=== PATIENT | female | born 1985 | race Caucasian/White ===

== ENCOUNTER 2019-09-04 12:45 | Outpatient (CLI) | payer BC, SELFPAY ==
--- NOTE | 2019-09-04 13:00 | CT_ITS ---
WS: [id number] CT HEAD NONCONTRAST HISTORY: intense headache TECHNIQUE: Contiguous axial imaging performed through the brain in 2.5 mm imaging. Bone and soft tiss ue windows. All CT scans at [facility] use at least one of these dose optimization techniq ues: automated exposure control; mA and/or kV adjustment per patient size (includes targeted exams wh ere dose is matched to clinical indication); or iterative reconstruction. DLP: 859.77 mGycm COMPARISON: None available. No acute intracranial hemorrhage, midline shift or mass effect. No atrophy or prior infarcts or herniation. Ventricles: Normal size with no hydrocephalus. Paranasal sinuses: As visualized are clear. Mastoid air cells: Well pneumatized. Calvarium and scalp: Skull is intact with no soft tissue edema or swelling. CT/CT head wo con* [id number] IMPRESSION: Negative head CT.
== END 2019-09-04 12:46 | disposition home or self-care (01) ==
LOC: RADWPI 12:51
PROVIDERS: PCP Nurse Practitioner Family; Visit Provider Nurse Practitioner Family
DX: R51 Headache (principal)
CPT/HCPCS: 70450

== ENCOUNTER 2019-09-23 07:03 | Outpatient (CLI) | payer BC, SELFPAY ==
--- NOTE | 2019-09-23 07:15 | USCV_ITS ---
Kalie Gomez Age: 33 Gender: F : 1985 Exam Date: 09/23/2019 07:23 Ordering Phys: HUEY Braden APRN Technologist: JHONATHAN OCONNOR Exam Location: [facility] [place] Indication: PAIN AND SWELLING RIGHT LOWER LEG PROCEDURES: Venous duplex imaging was performed in only the right lower extremity. The following venous structures were evaluated: common femoral vein, profunda vein, proximal portion of the greater saphenous vein, superficial femoral vein, and the popliteal vein. In addition, the posterior tibial and peroneal trunk were evaluated. Serial compression, augmentation maneuvers, and spectral Doppler flow evaluation were performed. FINDINGS: Normal 2-D Doppler and augmentation and compressibility throughout the lower extremity venous structures. Additional imaging through the proximal calf veins also reveals no thrombus. Limited evaluation of the greater saphenous vein is patent with no thrombus. Lymph node appearing areas were visualized at the level of the profunda. CONCLUSIONS No DVT right lower extremity. Dr. Abi Amanda DO (Electronically Signed) Final Date: 23 September 2019 09:26 S
== END 2019-09-23 07:04 | disposition home or self-care (01) ==
PROVIDERS: PCP Nurse Practitioner Family; Visit Provider Nurse Practitioner Family
DX: M79.661 Pain in right lower leg (principal); M79.89 Other specified soft tissue disorders
CPT/HCPCS: 93971

== ENCOUNTER → 2019-11-20 11:47 | Outpatient (BNVA) | payer BC, SELFPAY | PROVIDERS: PCP Nurse Practitioner Family; Referring Provider Nurse Practitioner Family; Visit Provider Specialist | DX: G43.711 Chronic migraine without aura, intractable, with status migrainosus (principal); Z86.718 Personal history of other venous thrombosis and embolism | CPT/HCPCS: 99204 ==

== ENCOUNTER → 2019-12-02 11:35 | Outpatient (BNVA) | payer BC, SELFPAY | PROVIDERS: PCP Nurse Practitioner Family; Visit Provider Nurse Practitioner Family | DX: R53.83 Other fatigue (principal); E78.2 Mixed hyperlipidemia; Z79.899 Other long term (current) drug therapy; D64.9 Anemia, unspecified | CPT/HCPCS: 80053; 80061; 81003; 82607; 82746; 83036; 83540; 83735; 84439; 84443; 84481; 85025 ==

== ENCOUNTER → 2019-12-04 09:32 | Outpatient (BNVA) | payer BC, SELFPAY | PROVIDERS: PCP Nurse Practitioner Family; Visit Provider Nurse Practitioner Family | DX: R53.83 Other fatigue (principal); E78.2 Mixed hyperlipidemia; D64.9 Anemia, unspecified | CPT/HCPCS: 80061; 82607; 82746; 83540; 83735; 84439; 84443; 84481 ==

== ENCOUNTER → 2020-01-14 11:40 | Outpatient (BNVA) | payer BC, SELFPAY | PROVIDERS: PCP Nurse Practitioner Family; Visit Provider Nurse Practitioner Family | DX: R00.0 Tachycardia, unspecified (principal); D64.9 Anemia, unspecified; Z86.73 Personal history of transient ischemic attack (TIA), and cerebral infarction without residual deficits; E53.8 Deficiency of other specified B group vitamins | CPT/HCPCS: 83921 ==

== ENCOUNTER → 2020-05-19 12:06 | Outpatient (BNVA) | payer OTHER, SELFPAY | PROVIDERS: PCP Nurse Practitioner Family; Visit Provider Specialist | DX: G43.711 Chronic migraine without aura, intractable, with status migrainosus (principal); Z86.718 Personal history of other venous thrombosis and embolism | CPT/HCPCS: 99213; 99214 ==

== ENCOUNTER → 2020-08-19 09:45 | Outpatient (BNVA) | payer OTHER, SELFPAY | PROVIDERS: PCP Nurse Practitioner Family; Visit Provider Specialist | DX: G43.711 Chronic migraine without aura, intractable, with status migrainosus (principal); Z86.718 Personal history of other venous thrombosis and embolism | CPT/HCPCS: 99213; 99214 ==

== ENCOUNTER → 2020-09-27 14:37 | Outpatient (BNVA) | payer OTHER, SELFPAY | PROVIDERS: PCP Nurse Practitioner Family; Visit Provider Internal Medicine | DX: Z01.812 Encounter for preprocedural laboratory examination (principal); R13.10 Dysphagia, unspecified; Z20.822 Contact with and (suspected) exposure to COVID-19 | CPT/HCPCS: 87635 ==

== ENCOUNTER 2020-10-01 08:43 | Day surgery (SDC) | payer OTHER, SELFPAY ==
[2020-09-29 12:01] VITALS: BMI 31.8
--- NOTE | 2020-10-01 09:23 | ANES.PREANE2 ---
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) Anesthetic Plan: ASA status: 2 Anesthesia: MAC Risk of > 500 ml blood loss (7ml/kg in children): No PFSH Anesthesia PFSH: Medical History Anemia Dysphagia Family planning, BCP maintenance Fatigue Folic acid deficiency GERD (gastroesophageal reflux disease) History of anticoagulant use History of blood clot in brain Medication management Mixed hyperlipidemia Mood swings Nausea & vomiting Sinus tachycardia Tachycardia Surgical History No pertinent past surgical history Family History Other CAD (coronary artery disease) Diabetes Hypertension Social History Smoking and tobacco status: never smoked Second hand smoke exposure: No Counseling given: No Desire information about substance/drug rehabilitation?: No Counseling given: No History of recent travel: No Data Anesthesia Cardiac Studies: No Data to Display
--- NOTE | 2020-10-01 09:32 | W.PM.OPSFHP ---
Same Day Surgery H&P Indication for Procedure/HPI DATE OF PROCEDURE: October 01, 2020 CHIEF COMPLAINT/INDICATIONFOR SURGICAL PROCEDURE: Abdominal pain and katelyn colored stools PREOP DIAGNOSIS: Abdominal pain and katelyn colored stools PLANNED PROCEDRUE: Operation Date: 10/01/20 09:30 Proposed Procedures p EGD 76172 R13.10(Not Applicable) - Sawyer Lopez MD Medications/Allergies* Home Medications Medication Instructions Recorded Confirmed Type cetirizine 10 mg capsule 10 mg PO DAILY 11/20/19 09/29/20 History cholecalciferol (vitamin D3) 1,250 PO DAILY cap 11/20/19 09/21/20 History mcg (50,000 unit) capsule Allergies/Adverse Reactions Allergy/AdvReac Type Severity Reaction Status Date / Time latex Allergy ALGY-Hives Verified 09/29/20 11:58 Pertinent History/Comorbid Conditions* Medical History (Updated 09/16/20 @ 15:10 by Sawyer Lopez MD) Anemia Dysphagia Family planning, BCP maintenance Fatigue Folic acid deficiency GERD (gastroesophageal reflux disease) History of anticoagulant use History of blood clot in brain Medication management Mixed hyperlipidemia Mood swings Nausea & vomiting Sinus tachycardia Tachycardia Surgical History (Updated 12/02/19 @ 10:26 by ELISA Nash) No pertinent past surgical history Family History (Updated 11/20/19 @ 12:18 by Adilia Messina LPN) Diabetes CAD (coronary artery disease) Hypertension Social History Smoking and tobacco status: never smoked Second hand smoke exposure: No Counseling given: No Desire information about substance/drug rehabilitation?: No Counseling given: No History of recent travel: No Pertinent Exam Findings alert, oriented x 3, clear to auscultation bilaterally, regular rate & rhythm, operative site marked and procedure specific exam findings Recommendations Surgery/Procedure today Coding Level of Care Code Acute Director Non Profit for Carlos Enrique Bruno
[2020-10-01 09:38] VITALS: BP 121/77; PULSE 80; RESP 18; TEMP 37; O2SAT 100
[2020-10-01] MEDS: sodium chloride 0.9% 1,000 ML 30 ML IV (09:42)
[2020-10-01 09:48] LABS: OR HCG Qualitative Urine Negative (Negative)
[2020-10-01 10:28] VITALS: BP 111/73; PULSE 97; RESP 18; O2SAT 98
--- NOTE | 2020-10-01 10:33 | ANE.PACU2 ---
Inpatient post-anesthesia follow up: Airway intact: Yes Vital signs: Temperature 98.6 F Pulse Rate 80 Respiratory Rate 18 Blood Pressure 121/77 Pulse Oximetry 100 Oxygen Delivery Me thod Room Air Oxygen Flow Rate Fraction of Inspir ed Oxygen Hydration adequate: Yes Nausea and vomiting: No Pain level: 1 Mental status: Baseline
[2020-10-01 10:52] VITALS: BP 103/67; PULSE 85; RESP 18; O2SAT 99
== END 2020-10-01 10:55 | disposition home or self-care (01) ==
PROVIDERS: Anesthesiology; PCP Nurse Practitioner Family; Visit Provider Internal Medicine
PROC: 0DJ08ZZ Inspection of Upper Intestinal Tract, Via Natural or Artificial Opening Endoscopic (ICD-10-PCS; CPT 43235; principal; 2020-10-01 09:30)
DX: R10.13 Epigastric pain (principal); R19.5 Other fecal abnormalities; E78.2 Mixed hyperlipidemia; Z82.49 Family history of ischemic heart disease and other diseases of the circulatory system; Z83.3 Family history of diabetes mellitus; Z86.73 Personal history of transient ischemic attack (TIA), and cerebral infarction without residual deficits
CPT/HCPCS: 43235; 81025; 84703; 96360; J2704; J7030

== ENCOUNTER 2020-10-15 09:52 | Outpatient (CLI) | payer OTHER, SELFPAY ==
--- NOTE | 2020-10-15 10:15 | US_ITS ---
WS: [id number] RIGHT UPPER QUADRANT ULTRASOUND HISTORY: R10.9 - Unspecified abdominal pain COMPARISON: None available. Liver: 17.9 cm in length. Normal size liver. No bile duct dilatation or mass. Gallbladder: Normally distended gallbladder with no stones or wall thickening. CBD: 0.3 cm Pancreas: Normal size and echogenicity. Right kidney: 10.7 cm in length. Normal size and echogenicity. No hydronephrosis or mass. Aorta and IVC: Unremarkable abdominal aorta and IVC. No ascites. US/US gall bladder [id number] IMPRESSION: Normal RIGHT upper quadrant ultrasound.
== END 2020-10-15 09:53 | disposition home or self-care (01) ==
LOC: US 09:53
PROVIDERS: PCP Nurse Practitioner Family; Visit Provider Internal Medicine
DX: R10.9 Unspecified abdominal pain (principal)
CPT/HCPCS: 76705

== ENCOUNTER 2020-11-03 15:24 | Outpatient (CLI) | payer OTHER, SELFPAY ==
--- NOTE | 2020-11-03 15:45 | USCV_ITS ---
Kalie Gomez Age: 34 Gender: F : 1985 Exam Date: 11/03/2020 15:39 Ordering Phys: Reynaldo Mercado M.D ([email or web address]) Technologist: Cristel Vital Exam Location: [facility] [place] Indication: TACHYCARDIA BP: 145 / 90 HR: 68 Rhythm: Sinus Technical Quality: Adequate MEASUREMENTS (Male / Female) Normal Values 2D ECHO LV Diastolic Diameter PLAX 3.8 cm 4.2 - 5.9 / 3.9 - 5.3 cm LV Systolic Diameter PLAX 2.5 cm IVS Diastolic Thickness 1.2 cm 0.6 - 1.0 / 0.6 - 0.9 cm IVS Systolic Thickness 1.7 cm LVPW Diastolic Thickness 1.0 cm 0.6 - 1.0 / 0.6 - 0.9 cm LVPW Systolic Thickness 1.4 cm RV Chamber Size 2.8 cm LVOT Diameter 2.0 cm LV Ejection Fraction 2D Teich 63.0 % LV Ejection Fraction MOD 2C 58.5 % LV Ejection Fraction 2C AL 58.5 % LA Diameter 3.1 cm LA Width 3.4 cm LA Height 4.2 cm RA Width 2.8 cm RA Height 3.8 cm Aorta at Sinotubular Diameter 2.0 cm M-MODE MV E Point Septal Separation 0.3 cm DOPPLER AV Peak Velocity 136.0 cm/s LVOT Peak Velocity 128.0 cm/s AV Area Cont Eq vti 2.7 cm squared AV Area Cont Eq pk 3.0 cm squared MV Area PHT 5.0 cm squared Mitral E to A Ratio 0.9 MV E' Velocity 49.5 cm/s Mitral E to MV E' Ratio 5.3 Mitral E to LV E' Lateral Ratio 5.7 Mitral E to LV E' Septal Ratio 5.0 TR Peak Velocity 248.3 cm/s TR Peak Gradient 24.7 mmHg TV Peak E Velocity 50.0 cm/s Right Atrial Pressure 3.0 mmHg Pulmonary Artery Systolic Pressu 27.7 mmHg PV Peak Velocity 93.0 cm/s RV Acceleration Time 0.1 s RV Ejection Time 0.3 s RV AcT/ET 0.4 FINDINGS Left Ventricle Normal left ventricular size, systolic function and wall thickness, with no regional wall motion abnormalities. Normal left ventricular wall thickness. Normal diastolic filling pattern. Right Ventricle The right ventricle is normal in size and function. Right Atrium The right atrium is normal in size. Left Atrium The left atrium is normal in size. Mitral Valve Structurally normal mitral valve without significant stenosis or prolapse. There is trace mitral regurgitation. Aortic Valve Structurally normal aortic valve without significant sclerosis or stenosis. There is no aortic regurgitation. Tricuspid Valve Structurally normal tricuspid valve without significant stenosis. Trace tricuspid regurgitation. Insufficient TR jet to calculate RVSP Pulmonic Valve Structurally normal pulmonic valve without significant stenosis. There is no pulmonic regurgitation. Pericardium Normal pericardium without effusion. Aorta Normal ascending aorta dimension. CONCLUSIONS LV systolic function is normal with EF of 55-60% Diastolic function is normal Trace mitral regurgitation Trace tricuspid regurgitation No comparsion studies are available Reynaldo Mercado MD (Electronically Signed) Final Date: 11 November 2020 10:22 S
== END 2020-11-03 15:25 | disposition home or self-care (01) ==
LOC: RAD 15:25
PROVIDERS: PCP Nurse Practitioner Family; Visit Provider Internal Medicine
DX: R00.0 Tachycardia, unspecified (principal); I08.1 Rheumatic disorders of both mitral and tricuspid valves
CPT/HCPCS: 93306

== ENCOUNTER → 2020-11-18 09:07 | Outpatient (BNVA) | payer OTHER, SELFPAY | PROVIDERS: PCP Nurse Practitioner Family; Visit Provider Specialist | DX: G43.711 Chronic migraine without aura, intractable, with status migrainosus (principal); Z86.718 Personal history of other venous thrombosis and embolism | CPT/HCPCS: 99214 ==

== ENCOUNTER 2020-12-09 12:41 | Outpatient (CLI) | payer OTHER, SELFPAY ==
--- NOTE | 2020-12-09 13:00 | MR_ITS ---
WS: [id number] MRI BRAIN WITHOUT CONTRAST HISTORY: G43.711 - Chronic migraine without aura, intractable, migraines. COMPARISON: 09/04/[address] TECHNIQUE: Diffusion imaging, multiplanar T1, T2 and FLAIR imaging obtained. No evidence for acute infarct or hemorrhage. Chaudhry-white matter differentiation is normal. No remote or acute infarcts are volume loss. Ventricles and extra-axial spaces are normal. No inferior displacement of cerebellar tonsils. The sella turcica and pituitary gland are unremarkabl e. Small bilateral cervical chain lymph nodes. Dural venous sinuses and picayune of Levi demonstrate no abnormality on this unenhanced studies. Paranasal sinuses: Clear. Mastoid air cells: Normal. Calvarium and scalp: Intact. MR/MR head wo con* [id number] IMPRESSION: 1. Unremarkable noncontrast MRI brain.
== END 2020-12-09 12:42 | disposition home or self-care (01) ==
LOC: RADSHAW 12:43
PROVIDERS: PCP Nurse Practitioner Family; Visit Provider Specialist
DX: G43.711 Chronic migraine without aura, intractable, with status migrainosus (principal)
CPT/HCPCS: 70551

== ENCOUNTER → 2021-09-20 08:31 | Outpatient (BNVA) | payer OTHER, SELFPAY | PROVIDERS: PCP Nurse Practitioner Family; Visit Provider Nurse Practitioner | DX: E78.2 Mixed hyperlipidemia (principal); Z79.899 Other long term (current) drug therapy | CPT/HCPCS: 80053; 80061; 84443; 85025 ==

== ENCOUNTER → 2022-03-23 13:47 | Outpatient (BNVA) | payer OTHER, SELFPAY | PROVIDERS: PCP Nurse Practitioner Family; Visit Provider Nurse Practitioner | DX: R50.9 Fever, unspecified (principal); J10.1 Influenza due to other identified influenza virus with other respiratory manifestations | CPT/HCPCS: 87426 ==

== ENCOUNTER → 2022-09-12 13:23 | Outpatient (BNVA) | payer BC, SELFPAY | PROVIDERS: PCP Nurse Practitioner Family; Visit Provider Nurse Practitioner | DX: R05.9 Cough, unspecified (principal); J02.0 Streptococcal pharyngitis | CPT/HCPCS: 87880 ==

== ENCOUNTER → 2023-02-27 13:50 | Outpatient (BNVA) | payer BC, MEDICAID, SELFPAY | PROVIDERS: PCP Nurse Practitioner Family; Visit Provider Nurse Practitioner Family | DX: M67.919 Unspecified disorder of synovium and tendon, unspecified shoulder (principal) | CPT/HCPCS: 73030 ==

== ENCOUNTER → 2023-03-26 15:23 | Outpatient (BNVA) | payer BC, MEDICAID, SELFPAY | PROVIDERS: PCP Nurse Practitioner Family; Visit Provider Nurse Practitioner Family | DX: E55.9 Vitamin D deficiency, unspecified (principal); Z79.899 Other long term (current) drug therapy; D64.9 Anemia, unspecified; R53.83 Other fatigue; E78.2 Mixed hyperlipidemia; I10 Essential (primary) hypertension | CPT/HCPCS: 80053; 80061; 81003; 82306; 83036; 84443; 85025 ==

== ENCOUNTER → 2023-03-29 11:55 | Outpatient (BNVA) | payer BC, MEDICAID, SELFPAY | PROVIDERS: PCP Nurse Practitioner Family; Visit Provider Nurse Practitioner Family | DX: Z12.4 Encounter for screening for malignant neoplasm of cervix (principal); Z12.31 Encounter for screening mammogram for malignant neoplasm of breast; Z80.3 Family history of malignant neoplasm of breast | CPT/HCPCS: 88175 ==

== ENCOUNTER 2023-04-06 10:08 | Outpatient (CLI) | payer BC, MEDICAID, SELFPAY ==
--- NOTE | 2023-04-06 10:10 | MM_ITS ---
WS: [id number] SCREENING DIGITAL TOMOSYNTHESIS MAMMOGRAM WITH CAD HISTORY: Z12.31 - Encounter for screening mammogram for malignant ... COMPARISON: None available. Bilateral CC and MLO with tomosynthesis views submitted. Synthetic mammography reviewed. Computer aid ed detection analyzed. Breast composition: The breasts are heterogeneously dense, which may obscure small masses. No suspici ous masses, microcalcifications or architectural distortion. IMPRESSION: MM/[place] [id number] BI-RADS: 1-Negative FOLLOW UP: 1 Year Follow-up
== END 2023-04-06 10:09 | disposition home or self-care (01) ==
LOC: RAD 10:08
PROVIDERS: PCP Nurse Practitioner Family; Visit Provider Nurse Practitioner Family
DX: Z12.31 Encounter for screening mammogram for malignant neoplasm of breast (principal)
CPT/HCPCS: 77063; 77067

== ENCOUNTER 2023-04-11 09:52 | Outpatient (CLI) | payer BC, MEDICAID, SELFPAY ==
--- NOTE | 2023-04-11 10:15 | MR_ITS ---
WS: [id number] MRI LEFT SHOULDER NONCONTRAST TECHNIQUE: Sagittal T2, coronal T1, T2 and proton density imaging. Axial gradient PDE imaging. CLINICAL INFORMATION: M67.919 - Unspecified disorder of synovium and tendon, un... COMPARISON: None. FINDINGS: Mild degenerative arthritis AC joint with mild downsloping acromion. Small amount of subacromial flu id. Subacromial spurring. Mild tendinopathy distal supraspinatus. Normal infraspinatus. Normal teres minor. Normal subscapularis. Biceps tendon appears intact within the bicipital groove. Mild degenerat fernando narrowing glenohumeral articulation. Intra-articular biceps tendon appears intact. No other susp icious findings. I MPRESSION: 1. Mild degenerative arthritis AC joint with mild downsloping acromion with subacromial spurring. 2. Impingement distal supraspinatus with mild tendinopathy. 3. Rotator cuff is intact. 4. Biceps tendon is intact within the bicipital groove. 5. No other suspicious findings.
== END 2023-04-11 09:53 | disposition home or self-care (01) ==
LOC: RAD 09:52
PROVIDERS: PCP Nurse Practitioner Family; Visit Provider Nurse Practitioner Family
DX: M67.912 Unspecified disorder of synovium and tendon, left shoulder (principal); M19.012 Primary osteoarthritis, left shoulder; M75.42 Impingement syndrome of left shoulder
CPT/HCPCS: 73221

== ENCOUNTER → 2023-04-14 10:45 | Outpatient (BNVA) | payer BC, MEDICAID, SELFPAY | PROVIDERS: PCP Nurse Practitioner Family; Visit Provider Emergency Medicine | DX: R50.9 Fever, unspecified (principal); R52 Pain, unspecified; J02.0 Streptococcal pharyngitis; J10.1 Influenza due to other identified influenza virus with other respiratory manifestations | CPT/HCPCS: 87400; 87426 ==

== ENCOUNTER → 2024-04-02 11:57 | Outpatient (BNVA) | payer BC, MEDICAID, SELFPAY | PROVIDERS: PCP Nurse Practitioner Family; Visit Provider Nurse Practitioner Family | DX: I10 Essential (primary) hypertension (principal); E78.2 Mixed hyperlipidemia; E55.9 Vitamin D deficiency, unspecified; Z79.899 Other long term (current) drug therapy | CPT/HCPCS: 80053; 80061; 81003; 82306; 83036; 84443; 85025 ==

== ENCOUNTER 2024-05-21 09:01 | Outpatient (CLI) | payer BC, MEDICAID, SELFPAY ==
--- NOTE | 2024-05-21 09:00 | MM_ITS ---
WS: [id number] BILATERAL SCREENING DIGITAL TOMOSYNTHESIS MAMMOGRAM WITH CAD HISTORY: Z12.31 - Encounter for screening mammogram for malignant ... COMPARISON: 04/06/2023 Bilateral CC and MLO views with tomosynthesis and synthetic mammography submitted. Computer aided detection analyzed. Breast composition: The breasts are heterogeneously dense, which may obscure small masses. No suspicious masses, microcalcifications or architectural distortion. MM/MM scr tomosynthesis [id number] IMPRESSION: BI-RADS: 1 - Negative FOLLOW UP: 1 Year Follow-up
== END 2024-05-21 09:02 | disposition home or self-care (01) ==
LOC: MOBLMAM 09:07
PROVIDERS: PCP Nurse Practitioner Family; Visit Provider Nurse Practitioner Family
DX: Z12.31 Encounter for screening mammogram for malignant neoplasm of breast (principal); R92.333 Mammographic heterogeneous density, bilateral breasts
CPT/HCPCS: 77063; 77067